=== PATIENT | female | born 1995 | race Caucasian/White ===

== ENCOUNTER 2018-08-26 13:03 | Inpatient (IN) | payer OTHER ==
[~2018-08-26] VITALS: Ht 160 cm; Wt 71.7 kg
[~2018-08-26 13:03] MED LIST: DIPH-444 PO; PREN1TAB13 PO; PYRI100T2 PO
[2018-08-26 13:12] VITALS: Ht 160 cm; Wt 71.7 kg
[2018-08-26 13:13] VITALS: BP 113/65; PULSE 115; RESP 20
--- NOTE | 2018-08-26 15:19 | TRIAGE ---
OB Triage Datetime Report Generated by CPN: 08/26/2018 15:19 Datetime: 08/26/2018 14:29 Labor Evaluation Frequency: 0 Monitor Mode: External Pattern: Normal: <= 5 Contractions in 10 Minutes Resting Tone [place]: Relaxed Heart Rate FHR Baseline Rate: 150 Monitor Mode: External US Variability: Minimal - Undetectable to <=5 bpm Accelerations: 10X10 Category: Category II Comments: PO HYRDATION GIVEN TO PATIENT Datetime: 08/26/2018 13:02 Assessment Type: Triage Time of Arrival: 08/26/2018 12:55 EGA: 32.4 Arrived By: Ambulatory Arrived From: Home Chief Complaint: ABSENT MOVEMENT Movement: Absent Contractions: Denies/Absent Rupture of Membranes: Denies Vaginal Bleeding: None Vaginal Discharge: Denies Recent Sexual Intercouse: Denies Abdominal Trauma: Not Applicable Patient Complaints: None Time Provider Notified: 08/26/2018 15:15 Provider Notified: DR. GOLDSMITH Initial Plan: EFM, BPP Maternal Assessment Level of Consciousness: Fully Conscious DTR's/Clonus: DTRs 2+; No Clonus Headache: Denies Blurred Vision: No Respiratory Effort: Unlabored; Regular Rhythm; Equal Expansion Breath Sounds, Left: Clear and Equal Breath Sounds, Right: Clear and Equal Nausea/Vomiting: Denies RUQ Epigastric Pain: Denies Lower Extremities Edema: None Degree: None Upper Extremities Edema: None Degree: None Facial Edema: None Fall Risk Assessment History of Falling: (0) No Secondary Diagnosis: (0) No Ambulatory Aid: (0) Bedrest/Nurse Assist IV Therapy: (0) No Gait: (0) Normal/Bedrest/Immobile Mental Status: (0) Oriented to Own Ability Fall Score: 0 Fall Risk Score Definition: No Risk: No action required Datetime: 07/31/2018 21:19 EGA: 28.6 Datetime: 07/31/2018 19:15 Fall Score: 0 Fall Risk Score Definition: No Risk: No action required
[2018-08-26] MEDS: BETAMET NA PHOS/AC(6 MG/ML) 2 ML INJ SYG IM SCH (17:01)
[2018-08-26] MEDS: LACTATED RINGER'S 1,000 ML IV SCH (18:28)
--- NOTE | 2018-08-26 19:10 | HP ---
Date/Time of Note Date/Time of Note DATE: 08/26/18 TIME: 18:59 OB - History Hx of Present Free Text/Dictation 23 y.o primigravida presents triage with no FM today care was done at [facility] started at 7w2d EFM revealed no uterine activities with decrease BBV and deceleration x3 down to 110's for 1-2min after hydration no significant improvement decided to admit for extended observation and prepared for possible early delivery Chief Complaint: no FM Estimated Due Date: Oct 17, 2018 : 1 Para: 0 Spontaneous : 0 Therapeutic : 0 Care: Limited Care Ultrasounds: Normal mid trimester US Obstetrical Complications: None Medical Complications: None Past Family/Social History * Past Medical, Surgical, Family and Obstetric Histories reviewed from chart. Blood Type: AB+ Rubella: unknown RPR/VDRL: Unknown GBS Status: Unknown HBsAG: Unknown OB Admission Exam Vital Signs Vital Signs Vital Signs Date Temp Pulse Resp B/P (MAP) Pulse Ox O2 O2 Flow FiO2 Time Delivery Rate 08/26/18 98.2 115 20 113/65 Room Air 13:13 (81) Physical Exam HEENT: WNL Heart: Rhythm Normal Lungs: Clear, Equal Abdomen: WNL Extremities: Normal Reflexes: Normal Cervical Dilatation: other Effacement: Other Station: Other Membranes: Intact Amniotic Fluid: Unevaluable Heart Rate: 130's Accelerations: Accelerations Present Decelerations: Variable Decelerations Varibility: Minimum Contractions on Admission: None Last 72 hours Lab Results CBC & BMP 08/26/18 15:45 OB Assessment/Plan Other Assessment: IUP 32w4d CAT II tracing Plan: Other (extended observation) Other plan: DIANA MCCLURE MD Aug 26, 2018 19:10
[2018-08-27] MEDS: LACTATED RINGER'S 1,000 ML IV SCH ×3 (02:41→19:15)
--- NOTE | 2018-08-27 09:51 | CONS ---
Date/Time of Note Date/Time of Note DATE: 08/27/18 TIME: 09:46 Assessment/Plan Assessment/Plan Result Diagram: 08/26/18 1545 Results 24hrs Laboratory Tests Test 08/26/18 15:45 08/26/18 16:48 White Blood Count 11.1 H Red Blood Count 3.54 L Hemoglobin 10.8 L Hematocrit 32.7 L Mean Corpuscular Volume 92.4 Mean Corpuscular Hemoglobin 30.5 Mean Corpuscular Hemoglobin Concent 33.0 Red Cell Distribution Width 13.6 Platelet Count 229 Mean Platelet Volume 9.8 Immature Granulocytes % 1.200 H Neutrophils % 70.3 Lymphocytes % 19.2 Monocytes % 7.5 Eosinophils % 1.5 Basophils % 0.3 Nucleated Red Blood Cells % 0.0 Immature Granulocytes # 0.130 H Neutrophils # 7.8 H Lymphocytes # 2.1 Monocytes # 0.8 Eosinophils # 0.2 Basophils # 0.0 Nucleated Red Blood Cells # 0.0 Prothrombin Time 12.4 Prothrombin Time Ratio 1.0 INR International Normalized Ratio 0.91 Activated Partial Thromboplast Time 25.8 Rapid Plasma Reagin NONREACTIVE HIV (1&2) Antibody NEGATIVE Urine Opiates Screen Negative Urine Barbiturates Negative Urine Amphetamines Screen Negative Urine Benzodiazepines Screen Negative Urine Cocaine Screen Negative Urine Cannabinoids Negative Consultation Date/Type/Reason Admit Date/Time Aug 26, 2018 at 15:15 Date of Consultation: Aug 27, 2018 Type of Consult Neonatology Reason for Consultation 32.4-week mother with decreased movement and variables Requesting Provider: DIANA GOLDSMITH MD Hx of Present Illness I was asked to talk with his mother who is 23-year-old 1, para 0, AB 0 with at 32.4 weeks and was admitted on 08/26 with history of decreased movements. Mother had initial care at [facility] but however due to change of insurance she was subsequently transferred to clinic. Mother states that was essentially uneventful so far. She also denies any history of pre-existing medical conditions including diabetes mellitus, hypertension, alcohol tobacco or drug use. EDC is 10/17/18. No labs were available and the labs that were done here have shown her blood type to be AB+, Tim negative, RPR nonreactive, HIV negative, GC and chlamydia cultures negative, HBsAg pending. Biophysical profile was 8 out of 8. There is able to feel the movements at the present time but has occasional variables. She also received first dose of betamethasone on 08/26/18 at 1701 hrs. Her amniotic fluid index is normal. I discussed with both mother and father about the fetus being about 32-1/2 weeks gestation with risk for respiratory distress, treatment with oxygen, CPAP, nasal IMV and Curosurf administration if needed. Also discussed about risk for apnea of prematurity and treatment with caffeine, nasal cannula or CPAP if needed. Discussed about risk for sepsis including monitoring with CBC and blood culture and antibiotics to be considered if needed. Also discussed about risk for hyperbilirubinemia and treatment with phototherapy, IV fluids and TPN administration, feeding with feeding tube with breastmilk and formula, risk for gastroesophageal reflux, risk for NEC, risk for poor feeding and risk for neurodevelopmental delay. Discussed about survival of 95-98% but however risk for complications of prematurity. Discussed about length of stay of 4-6 weeks depending on infant's feeding patterns and weight gain. All parent's questions were answered and discussion was concluded after parents had no further questions. Total time spent 20 minutes with [id number] counseling of 15 minutes. Past Medical History Medications Current Medications Lactated Ringer's 1,000 ml @ 125 mls/hr Q8H IV Last administered on 08/27/18at 02:41; Admin Dose 125 MLS/HR; Start 08/26/18 at 15:30 Betamethasone Acet/Betameth SodPhos (Celestone Soluspan) 12 mg Q24H IM Last administered on 08/26/18at 17:01; Admin Dose 12 MG; Start 08/26/18 at 16:30; Stop 08/27/18 at 16:31 Allergies: Coded Allergies: No Known Allergy (Unverified , 07/31/18) Social History Smoking Status: Never smoker Exam/Review of Systems Vital Signs Vitals Vital Signs Date Temp Pulse Resp B/P (MAP) Pulse Ox O2 O2 Flow FiO2 Time Delivery Rate 08/26/18 98.2 115 20 113/65 Room Air 13:13 (81) Intake and Output 08/26/18 08/26/18 08/27/18 1515:00 23:00 07:00 IntakeIntake Total 1000 ml OutputOutput Total 600 ml 1150 ml BalanceBalance -600 ml -150 ml Medications Medications Current Medications Lactated Ringer's 1,000 ml @ 125 mls/hr Q8H IV Last administered on 08/27/18at 02:41; Admin Dose 125 MLS/HR; Start 08/26/18 at 15:30 Betamethasone Acet/Betameth SodPhos (Celestone Soluspan) 12 mg Q24H IM Last administered on 08/26/18at 17:01; Admin Dose 12 MG; Start 08/26/18 at 16:30; Stop 08/27/18 at 16:31 NEVAEH REAL MD Aug 27, 2018 09:51
--- NOTE | 2018-08-27 12:31 | PERINOTE ---
Date/Time of Note Date/Time of Note DATE: 08/27/18 TIME: 12:18 Assessment/Recommendations Other Assessments IUP 32W5D Non-reassuring FHT pattern, with reassuring BPP. US evidence of anemia Recommendations: Workup for anemia: antibody screen TORCH titers Parvovirus B-19 titers Kleihauer-Betke stain Would keep the fetus on continuous monitoring, repeat the BPP in the AM Further recommendations pending labs work above. OB Subjective Free Text/Dictaton Patient admitted for decreased movement. FHT's are non-reassuring but BPP is 8/8. US reveals mild ascites HD# 2 IUP @ 32W3D Current Medications Current Medications Lactated Ringer's 1,000 ml @ 125 mls/hr Q8H IV Last administered on 08/27/18at 10:41; Admin Dose 125 MLS/HR; Start 08/26/18 at 15:30 Betamethasone Acet/Betameth SodPhos (Celestone Soluspan) 12 mg Q24H IM Last administered on 08/26/18at 17:01; Admin Dose 12 MG; Start 08/26/18 at 16:30; Stop 08/27/18 at 16:31 Past Medical History Medical History: no pertinent history Surgical History: no surgical history FRONT END ALIGNMENT SPECIALIST History: no pertinent FRONT END ALIGNMENT SPECIALIST history Para: 0 : 1 LMP (Females 10-50): Family History Significant Family History: hypertension Social History Smoker: non-smoker Alcohol: none Drugs: none OB Admission Exam Physical Exam Vitals: Vital Signs Date Temp Pulse Resp B/P (MAP) Pulse Ox O2 O2 Flow FiO2 Time Delivery Rate 08/26/18 98.2 115 20 113/65 Room Air 13:13 (81) Heart Rate: 130's Accelerations: No Accelerations Varibility: Minimum (FHTs with small accelerations and decelerations. Variability is seen, but is less than expected.) Last 72 hours Lab Results CBC & BMP 08/26/18 15:45 Ultrasound Results BPP US performed by sc: BPP is 8/8, with a single deepest pocket of 5cm. Mild ascites is again seen, there is no pleural or pericardial effusion, and no skin enema seen. Heart rate is regular and not tachycardiac. MCA peak flow velocity is 80 cm/s, 1.74 MOM for GA. This is consistent with anemia. LORNE,SAUL H MD Aug 27, 2018 12:29
--- NOTE | 2018-08-27 13:05 | PN ---
Date/Time of Note Date/Time of Note DATE: 08/27/18 TIME: 13:00 OB Subjective Subjective Subjective Complains of back pain due to long time being in the bed. Denies any leaking of fluid vaginal bleeding or decreased movement. Denies any urinary symptoms. OB Objective Objective Objective GA: A&O, NAD Abdomen: soft, gravid, size appears to be consistent with dates NST reviewed, there is some subtle decelerations with good intermittent variability and accelerations BPP: 03/23 Laboratory Tests 08/26/18 15:45 Blood Bank Test 08/26/18 15:30 Blood Type AB POSITIVE Rh Immune Globulin Candidate NO OB Assessment/Plan Other Assessment: IUP at 32 weeks and 3 days Admitted due to decreased movement, noted to have occasional subtle decelerations Admitted for prolonged monitoring Tracing reviewed today still has subtle intermittent decelerations, last about 1 minute and resolved with good interval variability Reassuring BPP Status post 1 dose of steroid, due for second dose today No records are available Ordered estimated weight, rule out IUGR as well as umbilical artery Doppl er Keep continuous monitoring Complete dose of steroid as a scheduled Perinatology/neonatology consultation labs done except hepatitis B surface antigen that ordered today with hemoglobin A1c Diabetes is status unknown Urine toxicology screen requested Patient apparently had insufficient care Immunization including flu and Tdap shot while in house BRITTON DRAKE MD Aug 27, 2018 13:05
[2018-08-27] MEDS ORDERED: DIPHTH/TET/ACEL PERTUSS (ADULT) 0.5 ML VIAL IM* ONE (13:30)
[2018-08-27] MEDS: BETAMET NA PHOS/AC(6 MG/ML) 2 ML INJ SYG IM SCH (18:02)
[2018-08-28] MEDS: LACTATED RINGER'S 1,000 ML IV SCH (03:56)
[2018-08-28] MEDS ORDERED: CEFAZOLIN 2 GM/50 ML (PMX) 50 ML IVPB SCH (05:00)
[2018-08-28] MEDS ORDERED: OXYTOCIN 30 UNITS/LR 500 ML IV SCH ×2 (05:00→07:37)
--- NOTE | 2018-08-28 07:18 | PN ---
Date/Time of Note Date/Time of Note DATE: 08/28/18 TIME: 07:17 OB Subjective Subjective Subjective Patient is comfortable denies any complaints.. Is post perinatology consultation yesterday by Dr. Terri Wren. Incidental finding of hydrops in ultrasound. Per Dr. Weir there is evidence of severe anemia based on abnormal middle cerebral artery flow. Workup for severe anemia started. Labs including torch panel and KUB requested. I was called by Dr. Tavarez after the lab results were available. KB consistent with significant maternal hemorrhage. Patient is status post 2 doses of steroid every 12 hours. Per perinatology recommendation, recommended delivery 12 hours after the last dose of steroid or sooner if any emergency condition arise. OB Objective Objective Objective GA: A&O, NAD Abdomen, Soft, Gravid. Fundal height consistent with date NST: Appropriate for gestational age and category 1-2 OB Assessment/Plan Other Assessment: IUP at 32+ weeks Poor care, due to insurance issue last follow-up Incidental finding of ascites with evidence of hydrops Status post perinatology ultrasound and evaluation. Labs and clinical picture consistent with severe anemia No evidence of cardiac problem including arrhythmia or anatomy abnormality based on perinatology ultrasound Status post a dose of steroid heart tracing currently category 1-2 Recommended by perinatologist delivery within 12 hours or if any emergency occurs sooner I discussed with the patient and her family in detail regarding diagnosis and ultrasound as well as laboratory findings. Discussed regarding urgent delivery. Risk and benefit of section including risk of infection, bleeding, damage to surrounding structures including bowel and bladder and risk of blood transfusion including but not limited to blood borne infection including HIV, hepatitis B and C and transfusion reaction discussed with the patient in detail I also discussed regarding likelihood of exchange transfusion after delivery of the . Baby will be evaluated immediately by general supervisor after Slicing Machine Tender, charge nurse, or blood bank was notified Proceed with type and cross 2 units of O-, CMV negative. For possible exchange transfusion of the after . per blood bank, blood will be readily available within 15 minutes after informing blood bank I also discussed about risk of prematurity with the parents including risk of admission to the NICU, long-term hospitalization, short-term and long-term disabilities, as well as risk of hyperbilirubinemia, hypoglycemia, complications related to blood transfusion and etc. patient and verbalized understanding. All questions were answered to patient's best satisfaction Plan to proceed with section BRITTON DRAKE MD Aug 28, 2018 07:18
--- NOTE | 2018-08-28 07:19 | PREAC ---
Date/Time of Note Date/Time of Note DATE: 08/28/18 TIME: 07:18 Anesthesia Eval and Record Evaluation Time Pre-Procedure Interview DATE: 08/28/18 TIME: 07:18 Age 23 Sex female NPO: 8 hrs Preoperative diagnosis G1 Planned procedure CS Past Medical History Past Medical History: Includes Heme: Anemia Surgery & Anesthesia Issues No known issue Meds Anticoagulation: No Beta Levar within 24 hr: No Reason Beta Levar not given: Pt. not on B-Levar Reported Medications Diphenhydramine Hcl* (Unisom*) 50 Mg Capsule, 50 MG PO HS PRN for SLEEP, CAP 07/31/18 Pyridoxine Hcl* (Vitamin B-6*) 100 Mg Tablet, 100 MG PO DAILY, TAB 07/31/18 Pnv95/Ferrous Fumarate/FA ( Vitamins Tablet) 1 Each Tablet, 1 EACH PO, TAB 07/31/18 Current Medications Lactated Ringer's 1,000 ml @ 125 mls/hr Q8H IV Last administered on 08/28/18at 03:56; Admin Dose 125 MLS/HR; Start 08/26/18 at 15:30 Cefazolin Sodium/ Dextrose 50 ml @ 100 mls/hr ONCE IVPB ; Start 08/28/18 at 05:00 Oxytocin/Lactated Ringer's 500 ml @ 125 mls/hr POST IV ; Start 08/28/18 at 05:00 Meds reviewed: Yes Allergies Coded Allergies: No Known Allergy (Unverified , 07/31/18) Allergies Reviewed: Yes Labs/Studies Labs Reviewed: Reviewed by anesthesiologist Result Diagram: 08/26/18 1545 test: Positive Pre-procedure Exam Last vitals Vital Signs Date Temp Pulse Resp B/P (MAP) Pulse Ox O2 O2 Flow FiO2 Time Delivery Rate 08/26/18 98.2 115 20 113/65 Room Air 13:13 (81) Airway: Adequate mouth opening, Adequate thyromental dist Mallampati: Mallampati II Teeth: Normal Lung: Normal Heart: Normal ASA Physical Status ASA physical status: 2 Emergency: None Planned Anesthetic Neuraxial: Spinal Planned Pain Management Sub-arachniod narcotics Pre-operative Attestations Prior to commencing anesthesia and surgery, the patient was re-evaluated, there was verification of: *The patient's identity *The results of appropriate recent lab work and preoperative vital signs *The above evaluation not changing prior to induction *Anesthetic plan, risk benefits, alternative and complications discussed with patient/family; questions answered; patient/family understands, accepts and wishes to proceed. KELTON RED Aug 28, 2018 07:19
[2018-08-28] MEDS ORDERED: morphine SULFATE/PF (10 MG/10 ML) INJ ONE (07:28)
[2018-08-28] MEDS ORDERED: HYDROmorphONE 1 MG/5 ML IV SYRINGE IV PRN ×3 (07:30)
[2018-08-28] MEDS ORDERED: DIPHENHYDRAMINE 50 MG INJ IV PRN ×2 (07:30)
[2018-08-28] MEDS ORDERED: ALBUTEROL 0.083% (NEB) 2.5 MG/3 ML AMP HHN PRN (07:30)
[2018-08-28] MEDS ORDERED: METOCLOPRAMIDE 10 MG INJ IV PRN (07:30)
[2018-08-28] MEDS ORDERED: KETOROLAC 30 MG INJ IV PRN (07:30)
[2018-08-28] MEDS ORDERED: ONDANSETRON 4 MG INJ IV PRN ×2 (07:30)
[2018-08-28] MEDS ORDERED: FENTAnyl 50 MCG/ML VIAL IV PRN ×2 (07:30)
[2018-08-28] MEDS ORDERED: HYDROmorphONE 0.5 MG/0.5 ML SYG IV PRN ×2 (07:30)
[2018-08-28] MEDS ORDERED: NALOXONE (0.4 MG/ML) INJ IV PRN (07:30)
--- NOTE | 2018-08-28 07:30 | OPR ---
Operative Report Planned Procedure Free Text/Dictation August 28, 2018 Procedure date Aug 28, 2018 Procedure(s) 1. Primary section Via Pfannenstiel skin incision Performed by see signature line Supervisor Dry Paste: LULÚ BAEZ M.D. 2nd Supervisor Dry Paste None Anesthesiologist: KELTON RED Pre-procedure diagnosis 1. IUP at 32 + weeks 2. Insufficient care 3. hydrops, severe anemia due to severe maternal hemorrhage incidentally noted in ultrasound. Status post perinatology consultation, workup positive for maternal hemorrhage [id number] Anesthesia Type: [id number] spinal Post-Procedure Post-procedure diagnosis Same Findings Live Baby viable , position [vertex], Estimated Blood Loss: 600 - 700 mls Specimen(s) Cord blood, placenta Grafts/Implant(s) none Complication(s) none Pt Condition post procedure: stable Disposition: PACU Procedure Description After discussion with patient about her extremity for the procedure including risk of infection, bleeding, damage to surrounding structures including bowel and bladder and risk of blood transfusion including but not limited to blood b orne infection including HIV, hepatitis B and C and transfusion reaction informed consent was obtained. Patient verbalized understanding all the above risk She received a dose of Ancef prior to be taken to the OR. Blood bank was notified for possibility of need for all negative CMV negative packed red blood cell, 4 and the only TSH works and transfusion in case Digital Project Coordinator was aware patient was then taken to the OR and was placed under adequate spinal anesthesia. She was placed in dorsal supine position with a leftward tilt. After assurance of adequate spinal anethesia, first a pfenensteile incision was made and was carried down to the under layer of fascia using scalpel and Bovie, Then the the superior aspect of the fascial incision grasped with a Guillaume, was elevated and was dissected off the underlying rectus muscle using sharp and blunt dissection. Then the inferior aspect of fascial incision in a similar fashion was grasped with a Guillaume, was elevated dissected off of the parameters muscle in a similar fashion. Rectus muscle was in the midline. Parietal peritoneum entered bluntly. Intra-abdominal cavity entered without any complication. Lower uterine segment was identified. With careful attention to the bladder the lower uterine segment incision was made. Amniotic fluid noted Baby's vertex was grasped and was brought up to the incision while curriculum assistant was applying fundal pressure the baby's head was delivered in anterior shoulder then posterior shoulder rest of the body delivered without any complication. Baby was immediately handed to the awaiting NICU team. Cord blood was obtained and was sent to the blood bank for immediate crossmatching Of note that prior to procedure informed blood bank of need of O- CMV negative blood for possible MX and transfusion. Then the placenta delivered complete and was sent to pathology. Uterine incision was repaired in 2 layers using 1-0 Monocryl. First layer used for hemostasis and the second layer used for imbrication. Excellent hemostasis of the uterine incision was noted. Uterus normal shape. Present tubes appear to be normal. After reassurance about the hemostasis of the incision and removing of the laps and sponge the parietoperitoneum repaired in the midline using 2-0 Vicryl Then the bleeding of the sub-fascia and rectus muscle was controlled using Bovie Irrigation of substance. Tissue performed using normal saline. The skin at the end was reapproximated using 3-0 Monocryl in subcuticular fashion Fundus was firm at the end of the delivery Sponge lap and needle counts were correct x2 Patient tolerated the procedure well and was transferred to her room in stable condition BRITTON DRAKE MD Aug 28, 2018 07:30
[2018-08-28] MEDS ORDERED: LANOLIN HPA 1 PKT TOP PRN (08:00)
[2018-08-28] MEDS ORDERED: HYDROCODONE/APAP (5/325) TAB PO PRN (08:00)
[2018-08-28] MEDS ORDERED: CARBOPROST 250 MCG INJ IM PRN (08:00)
[2018-08-28] MEDS ORDERED: OXYTOCIN 30 UNITS/LR 500 ML IV PRN (08:00)
[2018-08-28] MEDS ORDERED: METHYLERGONOVINE 0.2 MG TAB PO PRN (08:00)
[2018-08-28] MEDS ORDERED: NACL 0.9% 3 ML SYG IV SCH (08:00)
[2018-08-28] MEDS ORDERED: MISOPROSTOL 200 MCG TAB PR PRN (08:00)
[2018-08-28] MEDS ORDERED: FENTAnyl 50 MCG/ML VIAL ONE ×2 (08:02→08:14)
[2018-08-28] MEDS: PYRIDOXINE 50 MG TAB PO SCH (09:00)
[2018-08-28] MEDS: KETOROLAC 30 MG INJ IV PRN ×2 (10:27→18:45)
[2018-08-28 11:40] VITALS: BP 98/55; PULSE 118; RESP 18
[2018-08-28] MEDS ORDERED: IBUPROFEN 600 MG TAB PO SCH (12:00)
[2018-08-28 15:30] VITALS: BP 103/58; PULSE 101; RESP 18
--- NOTE | 2018-08-28 16:51 | PAC ---
Date/Time of Note Date/Time of Note DATE: 08/28/18 TIME: 16:51 Post-Anesthesia Notes Post-Anesthesia Note Last documented vital signs Vital Signs Date Temp Pulse Resp B/P (MAP) Pulse Ox O2 O2 Flow FiO2 Time Delivery Rate 08/28/18 98.2 101 18 103/58 95 Room Air 15:30 (73) Activity: WNL Respiratory function: WNL Cardiovascular function: WNL Mental status: Baseline Pain reasonably controlled: Yes Hydration appropriate: Yes Nausea/Vomiting absent: Yes KELTON RED Aug 28, 2018 16:51
[2018-08-28 20:10] VITALS: BP 102/55; PULSE 86; RESP 18
[2018-08-28 23:55] VITALS: BP 112/52; PULSE 82; RESP 17
[2018-08-29 04:04] VITALS: BP 97/61; PULSE 83; RESP 18
[2018-08-29] MEDS: LACTATED RINGER'S 1,000 ML IV SCH ×2 (05:01→12:00)
[2018-08-29] MEDS: KETOROLAC 30 MG INJ IV PRN (05:01)
[2018-08-29] MEDS ORDERED: OXYCODONE/ACETAMINOPHEN (5/325) TAB PO PRN (08:00)
[2018-08-29] MEDS: IBUPROFEN 600 MG TAB PO SCH ×4 (08:00→23:53)
[2018-08-29] MEDS ORDERED: HYDROCODONE/APAP (5/325) TAB PO PRN (08:00)
[2018-08-29 08:20] VITALS: BP 101/71; PULSE 81; RESP 19
[2018-08-29] MEDS: OXYCODONE/ACETAMINOPHEN (5/325) TAB PO PRN ×2 (08:38→15:52)
[2018-08-29] MEDS: PYRIDOXINE 50 MG TAB PO SCH (08:38)
[2018-08-29 15:52] VITALS: BP 108/78; PULSE 97; RESP 19
[2018-08-29 20:20] VITALS: BP_SYST 18; PULSE 100; RESP 18
[2018-08-30 03:52] VITALS: BP 108/68; PULSE 97; RESP 17
[2018-08-30] MEDS: IBUPROFEN 600 MG TAB PO SCH ×4 (05:52→23:56)
[2018-08-30 08:00] VITALS: BP 105/72; PULSE 86; RESP 20
--- NOTE | 2018-08-30 08:48 | CONS ---
Date/Time of Note Date/Time of Note DATE: 08/30/18 TIME: 08:46 Assessment/Plan Assessment/Plan Result Diagram: 08/28/18 0943 Consultation Date/Type/Reason Admit Date/Time Aug 26, 2018 at 15:15 Initial Consult Date 08/27/18 Type of Consult Anesthesiology Reason for Consultation follow up Requesting Provider: DIANA GOLDSMITH MD 24 HR Interval Summary Free Text/Dictation Pt seen and examined at bedside on 08/29/18 is POD#1 s/p c/s. Pt received spinal duramorph for post-op pain control. She had no n/v/numbness in extremities. Exam/Review of Systems Vital Signs Vitals Vital Signs Date Temp Pulse Resp B/P (MAP) Pulse Ox O2 O2 Flow FiO2 Time Delivery Rate 08/30/18 98.1 97 17 108/68 Room Air 03:52 (81) 08/29/18 98 08:20 Intake and Output 08/29/18 08/29/18 08/30/18 1515:00 23:00 07:00 IntakeIntake Total 100 ml OutputOutput Total 1600 ml 400 ml BalanceBalance -1500 ml -400 ml Medications Medications Current Medications IV Flush (NS 3 ml) 3 ml PER PROTOCOL IV ; Start 08/28/18 at 08:00 Methylergonovine Maleate (Methergine) 0.2 mg Q6H PRN PO VAGINAL BLEEDING; Start 08/28/18 at 08:00 Simethicone (Mylicon) 160 mg Q8H PRN PO DISTENSION/GAS/BLOATING Last administered on 08/29/18at 23:55; Admin Dose 160 MG; Start 08/28/18 at 08:00 Lanolin (Lanolin Hpa) 1 applic BEDSIDE MEDICATION PRN TOP BEDSIDE FOR SMITH TO NIPPLES Last administered on 08/29/18at 08:38; Admin Dose 1 APPLIC; Start 08/28/18 at 08:00 Diphtheria/ Tetanus/Acell Pertussis (Adacel) 0.5 ml ONCE ONCE IM* ; Start 08/31/18 at 09:00; Stop 08/31/18 at 09:01 Measles/Mumps/ Rubella Vaccine Live (Mmr Ii Vaccine) 0.5 ml ONCE ONCE SC* ; St art 08/31/18 at 09:00; Stop 08/31/18 at 09:01 Oxytocin/Lactated Ringer's 500 ml @ 0 mls/hr ONCE PRN IV VAGINAL BLEEDING Last administered on 08/28/18at 17:48; Admin Dose 50 MLS/HR; Start 08/28/18 at 08:00 Carboprost Tromethamine (Hemabate) 250 mcg ONCE PRN IM VAGINAL BLEEDING; Start 08/28/18 at 08:00 Misoprostol (Cytotec) 1,000 mcg ONCE PRN WI VAGINAL BLEEDING; Start 08/28/18 at 08:00 Pyridoxine HCl (Vitamin B6) 100 mg DAILY PO Last administered on 08/29/18at 08:38; Admin Dose 100 MG; Start 08/28/18 at 09:00 Acetaminophen/ Hydrocodone Bitart ([place] (5/325)) 1 tab Q4H PRN PO PAIN LEVEL 4-6; Start 08/29/18 at 08:00 Ibuprofen (Motrin) 600 mg Q6 PO Last administered on 08/30/18at 05:52; Admin Dos e 600 MG; Start 08/29/18 at 08:00 Oxycodone/ Acetaminophen (Percocet (5/ 325)) 2 tab Q4H PRN PO MODERATE PAIN LEVEL 4-6 Last administered on 08/29/18at 15:52; Admin Dose 2 TAB; Start 08/29/18 at 08:00 Oxycodone/ Acetaminophen (Percocet (5/ 325)) 1 tab Q4H PRN PO MODERATE PAIN LEVEL 4-6; Start 08/29/18 at 08:00 KELTON RED Aug 30, 2018 08:48
[2018-08-30] MEDS: PYRIDOXINE 50 MG TAB PO SCH (09:44)
[2018-08-30 16:00] VITALS: BP 108/64; PULSE 97; RESP 20
--- NOTE | 2018-08-30 16:58 | QN ---
Documentation Comment POD#2 is stable afebrile tolerated diet No VB +Flatus +voids VS stable Gen NAD Abd soft NT ND Incision intact Genitalia no blood at perineum --->Ambulation LULÚ BAEZ M.D. Aug 30, 2018 16:58
--- NOTE | 2018-08-30 16:58 | QN ---
Documentation Comment late Entry Note: 08/30/2018 POD#1 is stable afebrile tolerated diet No VB +Flatus +voids VS stable Gen NAD Abd soft NT ND Incision intact Genitalia no blood at perineum --->Ambulation LULÚ BAEZ M.D. Aug 30, 2018 16:58
[2018-08-30 20:30] VITALS: BP 107/72; PULSE 100; RESP 18
[2018-08-31 04:00] VITALS: BP 109/75; PULSE 82; RESP 17
[2018-08-31] MEDS: IBUPROFEN 600 MG TAB PO SCH ×3 (05:48→17:29)
[2018-08-31 08:00] VITALS: BP 100/67; PULSE 79; RESP 18
[2018-08-31] MEDS ORDERED: DIPHTH/TET/ACEL PERTUSS (ADULT) 0.5 ML VIAL IM* ONE (09:00)
[2018-08-31] MEDS ORDERED: MEASLES,MUMPS,RUBELLA VACCINE INJ SC* ONE (09:00)
[2018-08-31] MEDS: PYRIDOXINE 50 MG TAB PO SCH (10:01)
--- NOTE | 2018-08-31 15:54 | PN ---
Date/Time of Note Date/Time of Note DATE: 08/31/18 TIME: 15:52 OB Subjective Subjective Subjective POD#3 Patient is doing well. She denies nausea, vomiting, shortness of breath, chest pain, headache. She has been ambulating without difficulty, tolerating regular diet. Pain is well controlled on current medications OB Objective Objective Objective VS - Last 72 Hours, by Label Date Temp Pulse Resp B/P (MAP) Pulse Ox O2 O2 Flow FiO2 Time Delivery Rate 08/31/18 98.5 79 18 100/67 Room Air 08:00 (78) 08/31/18 97.9 82 17 109/75 Room Air 04:00 (86) 08/30/18 98.2 100 18 107/72 Room Air 20:30 (84) 08/30/18 98.6 97 20 108/64 Room Air 16:00 (79) 08/30/18 98.2 86 20 105/72 Room Air 08:00 (83) 08/30/18 98.1 97 17 108/68 Room Air 03:52 (81) 08/29/18 97.5 100 18 18/ Room Air 20:20 08/29/18 98.6 97 19 108/78 Room Air 15:52 (88) 08/29/18 98.1 81 19 101/71 98 Room Air 08:20 (81) 08/29/18 98.9 83 18 97/61 (73) 98 Room Air 04:04 08/28/18 98.0 82 17 112/52 Room Air 23:55 (72) 08/28/18 98 20:10 08/28/18 98.0 86 18 102/55 Room Air 20:10 (71) General: AAO X 3, comfortable, NAD, appropriate mood and affect. ABD: +BS. Soft, non-tender. Uterus 2 cm below umbilicus Incision: Clear, dry, intact. No erythema, drainage or induration. Flank: No CVA tenderness (B/L) LE: Mild edema. No clubbing, cyanosis, thigh or calf tenderness (B/L). Homans 'sign is negative OB Assessment/Plan Other plan: 23-year-old s/p delivery at 32+ weeks POD#3 - AF, VSS - Baby is in NICU - Contraception methods with R/B/A/FR discussed - Continue care - Discharge home - Rx and instruction given - Follow up in one and 6 weeks EVA HARP Aug 31, 2018 15:54
--- NOTE | 2018-08-31 15:56 | DS ---
Date/Time of Note Date/Time of Note DATE: 08/31/18 TIME: 15:54 Obstetrical Discharge Record Final Diagnosis Final Diagnosis: delivered Other Final Diagnosis 23-year-old s/p delivery at 32+ weeks POD#3. Her course was unremarkable. She is ambulating and tolerating regular diet. Voiding without difficulty. Pain is well controlled on current medication. - AF, VSS - Baby is in NICU - Contraception methods with R/B/A/FR discussed - Continue care - Discharge home - Rx and instruction given - Follow up in one and 6 weeks Vaginal Delivery Obstetrical Delivery: Spontaneous Section Section: Primary Condition on Discharge Physical Assessment Last Vitals: Vital Signs Date Temp Pulse Resp B/P (MAP) Pulse Ox O2 O2 Flow FiO2 Time Delivery Rate 08/31/18 98.5 79 18 100/67 Room Air 08:00 (78) 08/29/18 98 08:20 Voiding: Yes Bowel Movement: Yes Breast: Soft, non-tender Fundus: Firm Calf Tenderness: No Patient Condition: Stable EVA HARP Aug 31, 2018 15:56
[2018-08-31 16:00] VITALS: BP 92/67; PULSE 86; RESP 18
== END 2018-08-31 18:57 | disposition home or self-care (01) | DRG 788 ==
LOC: OBT 13:03 → L-D 13:09 → OBT 15:15 → L-D 16:58 → PP1 08-28 11:39
PROVIDERS: ADMIT Obstetrics & Gynecology; ATTEND Obstetrics & Gynecology
PROC: 10D00Z1 Extraction of Products of Conception, Low, Open Approach (ICD-10-PCS; principal; 2018-08-28 07:30)
DX: O76 Abnormality in fetal heart rate and rhythm complicating labor and delivery (principal); O36.8230 Fetal anemia and thrombocytopenia, third trimester, not applicable or unspecified; O36.23X0 Maternal care for hydrops fetalis, third trimester, not applicable or unspecified; O36.8130 Decreased fetal movements, third trimester, not applicable or unspecified; O43.0 Placental transfusion syndromes; Z37.0 Single live birth; Z3A.32 32 weeks gestation of pregnancy
CPT/HCPCS: 76815; 76818; 80307; 83036; 85014; 85018; 85025; 85460; 85610; 85730; 86592; 86644; 86645; 86694; 86695; 86696; 86703; 86762; 86777; 86778; 86885; 86900; 86901; 86920; 87340; 88307; 90662; 90715; G0463; J0690; J0702; J1885; J2274; J2590; J3010; J7120

== ENCOUNTER 2019-01-19 16:01 | Emergency (ER) | payer OTHER ==
[~2019-01-19] VITALS: Ht 160 cm; Wt 73.7 kg
[~2019-01-19 16:01] MED LIST changes: -DIPH-444 PO
[2019-01-19 16:11] VITALS: Ht 160 cm; Wt 73.7 kg
--- NOTE | 2019-01-19 16:53 | ERD ---
ER Documentation Chief Complaint Chief Complaint POSSIBLE ABSCESS HPI 23-year-old female presents with complaint of dysuria and possible abscess on her vagina for the past 3 to 4 days. Denies any history of STDs. States that she is only been sexually active with her . Does not think her is having any similar symptoms. Denies any fevers or chills. Denies hematuria, flank pain, abdominal pain, vomiting, back pain denies any treatments. ROS All systems reviewed and are negative except as per history of present illness. Medications Home Meds Active Scripts Cephalexin* (Keflex*) 500 Mg Capsule, 500 MG PO BID for 7 Days, CAP Prov:SUNDAR HOWARD 01/19/19 Acyclovir* (Zovirax*) 800 Mg Tablet, 400 MG PO TID for 10 Days, TAB Prov:SUNDAR HOWARD 01/19/19 Reported Medications Pyridoxine Hcl* (Vitamin B-6*) 100 Mg Tablet, 100 MG PO DAILY, TAB 07/31/18 Pnv95/Ferrous Fumarate/FA ( Vitamins Tablet) 1 Each Tablet, 1 EACH PO, TAB 07/31/18 Allergies Allergies: Coded Allergies: No Known Allergy (Unverified , 07/31/18) PMhx/Soc Medical and Surgical Hx: pt denies Medical Hx History of Surgery: Yes () FmHx Family History: No diabetes, No coronary disease, No other Physical Exam Vitals Vital Signs Date Temp Pulse Resp B/P (MAP) Pulse Ox O2 O2 Flow FiO2 Time Delivery Rate 01/19/19 98.7 94 18 113/78 98 16:11 (90) Physical Exam Const: No acute distress Head: Atraumatic Eyes: Normal Conjunctiva ENT: Normal External Ears, Nose and Mouth. Neck: Full range of motion. No meningismus. Resp: Clear to auscultation bilaterally Cardio: Regular rate and rhythm, no murmurs Abd: Soft, non tender, non distended. Normal bowel sounds Skin: No petechiae or rashes Back: No midline or flank tenderness Ext: No cyanosis, or edema Neur: Awake and alert Psych: Normal Mood and Affect Pelvic: Performed director veterinary present. Erythematous vesicular lesions noted around the vulva. There were tender to palpation. Results 24 hrs Laboratory Tests Test 01/19/19 17:11 Urine Color YELLOW Urine Clarity SLIGHTLY CLOUDY Urine pH 5.0 Urine Specific [place] 1.012 Urine Ketones NEGATIVE mg/dL Urine Nitrite NEGATIVE mg/dL Urine Bilirubin NEGATIVE mg/dL Urine Urobilinogen NEGATIVE mg/dL Urine Leukocyte Esterase TRACE Tate/ul Urine Microscopic RBC 2 /HPF Urine Microscopic WBC 2 /HPF Urine Squamous Epithelial Cells FEW /HPF Urine Hemoglobin 2+ mg/dL Urine Glucose NEGATIVE mg/dL Urine Total Protein NEGATIVE mg/dl Procedures/MDM MDM: Patient presentation was consistent with genital herpes. Patient will be given acyclovir. In addition UA showed possible UTI so patient will be treated with course of Keflex. I have low suspicion for abscess, cellulitis, pyelonephritis or any other emergent condition. I advised patient to refrain from sexual relations with and to call in 3 days for results of the herpes test. Patient discharged with strict ER precautions. Patient advised to follow up with PMD. All questions answered at discharge. Departure Diagnosis: Primary Impression: Herpes Additional Impression: UTI (urinary tract infection) Urinary tract infection type: site unspecified Hematuria presence: without hematuria Qualified Codes: N39.0 - Urinary tract infection, site not specified Condition: Stable SUNDAR HOWARD Jan 19, 2019 16:53
[2019-01-19] MEDS ORDERED: ACYC800T5 PO (19:44)
[2019-01-19] MEDS ORDERED: CEPH-443 PO (19:44)
== END 2019-01-19 19:54 | disposition home or self-care (01) ==
LOC: FTE 16:01
DX: N39.0 Urinary tract infection, site not specified (principal); A60.09 Herpesviral infection of other urogenital tract
CPT/HCPCS: 81001; 86692; 87086; 87210; 87591; Z7502; 99284